=== PATIENT | male | born 1985 | race Caucasian/White ===

== ENCOUNTER 2020-11-20 20:49 | Emergency (ER) | payer MEDICARE, OTHER ==
[2020-11-20 21:22] LABS: RED BLOOD COUNT 4.93 M/UL (4.20-5.50); WHITE BLOOD COUNT 19.6 K/UL (4.5-11.0)
[2020-11-20 21:49] LABS: BUN/CREATININE RATIO 17 (0-10)
[2020-12-15] MEDS ORDERED: HYDROCODON-ACE1 EAC4 PO (07:50)
[2020-12-15] MEDS ORDERED: GABAPENTIN300 MG PO (07:50)
== END 2020-11-20 22:46 | disposition left against medical advice (07) ==
LOC: ER1 20:49
PROVIDERS: Emergency Medicine
DX: K85.10 Biliary acute pancreatitis without necrosis or infection (principal); Z88.0 Allergy status to penicillin; F17.290 Nicotine dependence, other tobacco product, uncomplicated
CPT/HCPCS: 71045; 80053; 81001; 82550; 82553; 83605; 83690; 83735; 83874; 83880; 84100; 84484; 85025; 85610; 85730; 93005; 99284; Q9967

== ENCOUNTER 2020-11-20 23:58 | Emergency (ER) | payer MEDICARE, OTHER ==
[2020-12-15] MEDS ORDERED: GABAPENTIN300 MG PO (07:50)
[2020-12-15] MEDS ORDERED: HYDROCODON-ACE1 EAC4 PO (07:50)
== END 2020-11-21 01:40 | disposition left against medical advice (07) ==
LOC: ER1 23:58
DX: Z53.21 Procedure and treatment not carried out due to patient leaving prior to being seen by health care provider (principal)

== ENCOUNTER → 2020-11-21 | Outpatient (CLI) | payer MEDICARE, OTHER ==
[~2020-11-21] MED LIST: GABAPENTIN300 MG PO; HYDROCODON-ACE1 EAC4 PO
== END ==
LOC: US 11:30
DX: R10.10 Upper abdominal pain, unspecified (principal); K80.20 Calculus of gallbladder without cholecystitis without obstruction; Q44.5 Other congenital malformations of bile ducts
CPT/HCPCS: 76705

== ENCOUNTER → 2020-12-14 | Outpatient (CLI) | payer MEDICARE, OTHER | LOC: EROP 14:20 | DX: Z20.822 Contact with and (suspected) exposure to COVID-19 (principal) | CPT/HCPCS: U0002 ==

== ENCOUNTER → 2020-12-15 | Day surgery (SDC) | payer MEDICARE, OTHER ==
[2020-12-15 08:01] LABS: BUN/CREATININE RATIO 16 (0-10)
== END | disposition home or self-care (01) ==
LOC: OR 06:58
PROVIDERS: Surgery
PROC: 0FT44ZZ Resection of Gallbladder, Percutaneous Endoscopic Approach (ICD-10-PCS; principal; 2020-12-15 10:40)
DX: K80.10 Calculus of gallbladder with chronic cholecystitis without obstruction (principal); I11.0 Hypertensive heart disease with heart failure; I50.9 Heart failure, unspecified; I38 Endocarditis, valve unspecified; F17.210 Nicotine dependence, cigarettes, uncomplicated; E66.9 Obesity, unspecified; Z68.32 Body mass index [BMI] 32.0-32.9, adult; Z20.822 Contact with and (suspected) exposure to COVID-19; Z88.0 Allergy status to penicillin; Z79.899 Other long term (current) drug therapy; Z98.84 Bariatric surgery status; Z79.1 Long term (current) use of non-steroidal anti-inflammatories (NSAID); Z79.891 Long term (current) use of opiate analgesic
CPT/HCPCS: 36415; 80048; J1100; J1170; J2001; J2250; J2405; J2704; J2710; J3010; J7030; J7120